=== PATIENT | female | born 1975 ===

== ENCOUNTER 2018-01-26 10:59 | Emergency (ER) | payer OTHER ==
[~2018-01-26] VITALS: Ht 154.9 cm; Wt 79.8 kg
[2018-01-26] MEDS ORDERED: TRIAMTERENE-HC1 EAC3 (11:49)
[2018-01-26] MEDS ORDERED: COZAAR25 MG (11:49)
[2018-01-26] MEDS ORDERED: KETO10TA2 PO (13:56)
== END 2018-01-26 14:01 | disposition home or self-care (01) ==
LOC: ER 10:59
DX: S93.492A Sprain of other ligament of left ankle, initial encounter (principal); W01.0XXA Fall on same level from slipping, tripping and stumbling without subsequent striking against object, initial encounter; Y93.01 Activity, walking, marching and hiking; Y92.89 Other specified places as the place of occurrence of the external cause; Y99.8 Other external cause status